=== PATIENT | female | born 1965 | race Two or more races ===

== ENCOUNTER 2020-10-28 23:39 | Emergency (ER) | payer OTHER ==
[~2020-10-28] VITALS: Ht 157.5 cm; Wt 72.6 kg
[2020-10-28 23:41] VITALS: BP 175/104
[2020-10-29] MEDS ORDERED: SODIUM CHLORIDE 0.9% 1,000 ML IVB ONE (00:15)
[2020-10-29] MEDS ORDERED: MORPHINE SULFATE 4 MG/ML SYR/VIAL IV ONE (00:15)
[2020-10-29] MEDS ORDERED: ONDANSETRON HCL 4 MG/2 ML VIAL IV ONE (00:15)
[2020-10-29 01:13] LABS: Basophils # (auto) 0 10 ^3/uL (0-0.2); Basophils % (auto) 0.2 % (0.0-2.0); Eosinophils # (auto) 0.1 10 ^3/uL (0-0.8); Eosinophils % (auto) 0.5 % (0.0-7.0); Hematocrit 40.4 % (36.0-46.0); Hemoglobin 13.2 g/dL (12.2-16.2); Lymphocytes # (auto) 2.2 10 ^3/uL (0.4-5.4); Lymphocytes % (auto) 11.8 % (10.0-50.0); Mean Corpuscular Hemoglobin 30.9 pg (28.0-32.0); Mean Corpuscular Hgb Conc. 32.8 g/dL (32.0-36.0); Mean Corpuscular Volume 94.3 fL (80.0-100.0); Monocytes # (auto) 1.5 10 ^3/uL (0-1.3); Monocytes % (auto) 8.1 % (0.0-12.0); Neutrophils # (auto) 14.7 10 ^3/uL (1.6-8.6); Neutrophils % (auto) 79.4 % (37.0-80.0); Nucleated Red Blood Cells % 0.1 %; Red Blood Cells 4.28 10^6/uL (4.0-5.20); Red Cell Distribution Width 14.2 % (11.8-14.3); White Blood Cell 18.5 10^3/uL (4.4-10.8)
[2020-10-29 01:25] LABS: Albumin 4.1 g/dL (3.4-5.0); BUN/Creatinine Ratio 24.4; Calcium 10.1 mg/dL (8.5-10.1); Potassium 4.2 mmol/L (3.5-5.1)
[2020-10-29 01:28] LABS: Bilirubin, Total 0.3 mg/dL (0.2-1.0); Lactic Acid w/Reflex 2.6 mmol/L (0.4-2.0); Total Protein 8.9 g/dL (6.4-8.2)
[2020-10-29 02:13] LABS: Urine Bacteria FEW /hpf (None Seen); Urine Blood Negative /uL (Negative); Urine Hyaline Cast FEW /lpf (0 - 2); Urine Mucus FEW (None Seen); Urine Specific Gravity 1.019 (1.001-1.035); Urine WBC 23 /hpf (0 - 5); Urine WBC Clumps PRESENT /hpf (None Seen)
== END 2020-10-29 02:59 | disposition left against medical advice (07) ==
LOC: ER 23:39
DX: R10.9 Unspecified abdominal pain (principal); R11.2 Nausea with vomiting, unspecified; R19.7 Diarrhea, unspecified; Z53.29 Procedure and treatment not carried out because of patient's decision for other reasons
CPT/HCPCS: 36415; 80053; 81001; 82150; 83605; 83690; 83735; 85025

== ENCOUNTER 2024-08-22 19:22 | Emergency (ER) | payer OTHER ==
[~2024-08-22] VITALS: Ht 157.5 cm; Wt 68.2 kg
[2024-08-22 19:33] VITALS: BP 167/90; PULSE 95; RESP 18; TEMP 98.2; O2SAT 96
[2024-08-22] MEDS ORDERED: ONDANSETRON HCL 4 MG/2 ML VIAL IV ONE (19:45)
[2024-08-22] MEDS ORDERED: PANTOPRAZOLE 40 MG/10 ML VIAL INJ IV ONE (19:45)
[2024-08-22] MEDS ORDERED: MORPHINE SULFATE 4 MG/ML SYR/VIAL IV ONE (19:45)
[2024-08-22] MEDS ORDERED: SODIUM CHLORIDE 0.9% 1,000 ML IVB ONE (19:45)
--- NOTE | 2024-08-22 20:06 | ED.PDOC ---
GI ASSESSMENT HPI Comments This is a 58-year-old female who comes in with chief complaint of abdominal pain and back pain. The patient states that the symptoms started at approximately 12:00 p.m. today. The patient states that the pain is a 10/10 and associated with some nausea and vomiting but no diarrhea or fever. The patient is able to ambulate but is having some difficulty. The patient is status post gastric bypass surgery. She states that the pain is not associated with any eating. Chief Complaint: Abdominal Pain Time Seen by MD: 19:31 Reviewed Notes: Nurses Notes, Medications, Allergies (NKDA) Allergies: Coded Allergies: NO KNOWN ALLERGIES (Unverified , 10/28/20) Information Source: Patient Mode of Arrival: Ambulatory Timing: Hours Duration: Since onset Prehospital treatment: None Quality: Burning, Cramping Vomitus: Watery Stool: Normal Severity: Moderate Recent: None Recent Hx of: None Pain Location: Diffuse Modifying Factors: Nothing Associated sign and symptoms: Nausea, Vomiting, Abdominal Pain Past Medical History PAST MEDICAL HISTORY: CKF, High Lipids, HTN Surgical History: BTL, Surgical History (Other): Gastric bypass surgery, tummy tuck 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: Denies all 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 Hx Family History Family History: Family hx of DM Social History Smoker: Non-Smoker Alcohol: Denies ETOH Use Drugs: Denies Drug Use Lives In: Home Constitutional: denies: chills, diaphoresis, fatigue, fever, malaise, sweats, weakness, others EENTM: denies: blurred vision, double vision, ear bleeding, ear discharge, ear drainage, ear pain, ear ringing, eye pain, eye redness, hearing loss, mouth pa in, mouth swelling, nasal discharge, nose bleeding, nose congestion, nose pain, photophobia, tearing, throat pain, throat swelling, voice changes, others Respiratory: denies: cough, hemoptysis, orthopnea, SOB at rest, shortness of breath, SOB with excertion, stridor, wheezing, others Cardiovascular: denies: chest pain, dizzy spells, diaphoresis, Dyspnea on exertion, edema, irregular heart beat, left arm pain, lightheadedness, palpitations, PND, syncope, others Gastrointestinal: reports: abdominal pain, nausea, vomiting; denies: abdomen distended, blood streaked bowels, constipated, diarrhea, dysphagia, difficulty swallowing, hematemesis, melena, poor appetite, poor fluid intake, rectal bleeding, rectal pain, others Genitourinary: denies: abnormal vagina bleeding, burning, dyspareunia, dysuria, flank pain, frequency, hematuria, incontinence, pain, , vagina discharge, urgency, others Neurological: denies: dizziness, fainting, headache, left sided numbness, left sided weakness, numbness, paresthesia, pre-existing deficit, right sided numbness, right sided weakness, seizure, speech problems, tingling, tremors, weakness, others Musculoskeletal: denies: back pain, gout, joint pain, joint swelling, muscle pain, muscle stiffness, neck pain, others Integumetry: denies: bruises, change in color, change in hair/nails, dryness, laceration, lesions, lumps, rash, wounds, others Allergic/Immunocompromised: denies: Difficulty Healing, Frequent Infections, Hives, Itching, others Hematologic/Lymphatic: denies: anemia, blood clots, easy bleeding, easy bruising, swollen glands, others Endocrine: denies: excessive hunger, excessive sweating, excessive thirst, excessive urination, flushing, intolerance to cold, intolerance to heat, unexplained weight gain, unexplained weight loss, others Psychiatric: denies: anxiety, bipolar disorder, depression, hopeless, panic disorder, schizophrenia, sleepless, suicidal, others Physical Exam General Appearance: Moderate Distress HEENT: Normal ENT Inspection, Pharynx Normal, TMs Normal Neck: Full Range of Motion, Non-Tender, Normal, Normal Inspection Respiratory: Chest Non-Tender, Lungs Clear, No Accessory Muscle Use, No Respiratory Distress, Normal Breath Sounds Cardiovascular: No Edema, No JVD, No Murmur, No Gallop, Normal Peripheral Pulses, Regular Rate/Rhythm Breast Exam: Deferred Gastrointestinal: Epigastric, No Organomegaly, No Pulsatile Mass, Normal Bowel Sounds, Soft, Tenderness Genitalia: Deferred Pelvic: Deferred Rectal: Deferred Extremities: No calf tenderness, Normal capillary refill, Normal inspection, Normal range of motion, Non-tender, No pedal edema Musculoskeletal : Apperance: Normal Neurologic: Alert, associate director of 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 Was a procedure done?: No GI differential Dx Differential Diagnosis: Cholangitis, Cholecystitis, Gastritis/PUD, Gastroenteritis, Inflammatory BD, Pancreatitis, UTI X-Ray, Labs, Meds, VS Vital Signs Date Time Temp Pulse Resp B/P (MAP) Pulse Ox O2 Delivery O2 Flow Rate FiO2 08/22/24 19:33 98.2 95 18 167/90 (115) 96 98.2 Lab Test 08/22/24 19:46 08/22/24 19:36 Range/Units White Blood Count 14.1 H 4.4-10.8 10^3/uL Red Blood Count 3.95 L 4.0-5.20 10^6/uL Hemoglobin 12.4 12.2-16.2 g/dL Hematocrit 37.5 36.0-46.0 % Mean Corpuscular Volume 94.9 80.0-100.0 fL Mean Corpuscular Hemoglobin 31.4 28.0-32.0 pg Mean Corpuscular Hemoglobin Concent 33.0 32.0-36.0 g/dL Red Cell Distribution Width 15.1 H 11.8-14.3 % Platelet Count 296 140-450 10^3/uL Mean Platelet Volume 8.2 6.9-10.8 fL Neutrophils (%) (Auto) 62.0 37.0-80.0 % Lymphocytes (%) (Auto) 28.9 10.0-50.0 % Monocytes (%) (Auto) 7.8 0.0-12.0 % Eosinophils (%) (Auto) 0.9 0.0-7.0 % Basophils (%) (Auto) 0.4 0.0-2.0 % Neutrophils # (Auto) 8.7 H 1.6-8.6 10 ^3/uL Lymphocytes # (Auto) 4.1 0.4-5.4 10 ^3/uL Monocytes # (Auto) 1.1 0-1.3 10 ^3/uL Eosinophils # (Auto) 0.1 0-0.8 10 ^3/uL Basophils # (Auto) 0.1 0-0.2 10 ^3/uL Nucleated Red Blood Cells 0.0 % Sodium Level 140 136-145 mmol/L Potassium Level 4.7 3.5-5.1 mmol/L Chloride Level 106 98-107 mmol/L Carbon Dioxide Level 25 20-31 mmol/L Anion Gap 9 5-15 Blood Urea Nitrogen 43 H 9-23 mg/dL Creatinine 2.14 H 0.550-1.02 mg/dL Glomerular Filtration Rate Calc 26 >90 mL/min BUN/Creatinine Ratio 20.1 H 10.0-20.0 Serum Glucose 113 H 74-106 mg/dL Calcium Level 9.4 8.7-10.4 mg/dL Total Bilirubin 0.3 0.2-1.0 mg/dL Aspartate Amino Transferase (AST) 30 13-40 U/L Alanine Aminotransferase (ALT) 26 7-40 U/L Alkaline Phosphatase 100 46-116 U/L Total Protein 7.5 5.7-8.2 g/dL Albumin 4.8 3.2-4.8 g/dL Lipase 60 H 12-53 U/L Urine Color Light-yellow Yellow Urine Clarity Clear Clear Urine pH 6.5 5.0-9.0 Urine Specific [place] 1.009 1.001-1.035 Urine Protein 2+ H Negative Urine Ketones Negative Negative Urine Blood 2+ H Negative /uL Urine Nitrite Negative Negative Urine Bilirubin Negative Negative Urine Urobilinogen Normal Negative mg/dL Urine Leukocyte Esterase 2+ Negative /uL Urine RBC 7 0 - 4 /hpf Urine Microscopic WBC 29 H 0-5 /HPF Urine Squamous Epithelial Cells Few <5 /hpf Urine Bacteria None seen None Seen /hpf Urine Glucose 3+ H Normal mg/dL IV Hep-Lock was established The patient is being given morphine 4 mg IV push The patient was given Zofran 4 mg IV push The patient was given Protonix 40 mg IV push The urine test is positive for what seems to be UTI The patient is then being given Rocephin 1 g IV piggyback The chemistry panel shows a BUN of 43 and a creatinine of 2.14 The lipase is elevated at 60 The CBC is elevated at 14.1 white count The patient is a [place] patient is so we did contact them for authorization for admission because we feel that this patient is unstable for transfer They did agree with us and the patient is being admitted to our facility. The authorization #[id number] We will continue to manage the patient's pain which was a 12/01. Images Reviewed?: Images reviewed and evaluated by me Time of 1ST Reevaluation: 20:09 Reevaluation 1ST: Unchanged Patient Education/Counseling: Diagnosis, Treatment, Prognosis Family Education/Counseling: No Family Present SEPSIS Sepsis Screen Date sepsis recognized/suspect: Aug 22, 2024 Time Sepsis recognized/suspect: 1924 Recent Procedure: No On Antibiotic Therapy: No Respiratory Rate >20: No Heart Rate >90: Yes Temp<36 C (96.8 F) or >38.3 C: No SBP <90 or MAP <65 mmHG: No New Acute Mental Status Change: No Is the patient on CPAP, BIPAP,: No Physician Orders Heplock Iv (08/22/24 19:35) Nylon Winder (08/22/24 19:35) Blood Pressure (08/22/24 19:35) Pulse Oximetry (08/22/24 19:35) Abdomen Complete Sonogram (08/22/24 19:35) Vital Signs Date Time Temp Pulse Resp B/P (MAP) Pulse Ox O2 Delivery O2 Flow Rate FiO2 08/22/24 19:33 98.2 95 18 167/90 (115) 96 98.2 Laboratory Tests Test 08/22/24 19:46 White Blood Count 14.1 10^3/uL (4.4-10.8) H Departure 1 Departure Time of Disposition: 21:34 Impression: Primary Impression: Intractable abdominal pain Additional Impressions: Thickening of wall of gallbladder Acute pancreatitis Qualified Codes: K85.90 - Acute pancreatitis without necrosis or infection, unspecified Leukocytosis Qualified Codes: D72.829 - Elevated white blood cell count, unspecified Disposition: 09 ADMITTED INPATIENT Admit to: Med Surg Condition: Fair Critical Care Note Critical Care Time?: No Stability Stability form required: Yes Unstable for transfer: ED Physician Assesment (Clinical assesment) Heart Score Heart Score: Heart Score Response (Comments) Value History N/A 0 EKG N/A 0 Age N/A 0 Risk Factors N/A 0 Troponin N/A 0 Total 0 YOBANY GUERRA MD Aug 22, 2024 20:06
[2024-08-22 20:08] LABS: Hematocrit 37.5 % (36.0-46.0); Hemoglobin 12.4 g/dL (12.2-16.2); Mean Corpuscular Hemoglobin 31.4 pg (28.0-32.0); Mean Corpuscular Volume 94.9 fL (80.0-100.0); Nucleated Red Blood Cells % 0.0 %
[2024-08-22 20:13] LABS: Urine Protein, UAD 2+ (Negative)
[2024-08-22 20:28] LABS: Alanine Aminotransferase 26 U/L (7-40); Albumin 4.8 g/dL (3.2-4.8); Alkaline Phosphatase 100 U/L (46-116); Anion Gap 9 (5-15); BUN/Creatinine Ratio 20.1 (10.0-20.0); Bilirubin, Total 0.3 mg/dL (0.2-1.0); Blood Urea Nitrogen 43 mg/dL (9-23); Calcium 9.4 mg/dL (8.7-10.4); Carbon Dioxide 25 mmol/L (20-31); Chloride 106 mmol/L (98-107); Glucose 113 mg/dL (74-106); Lipase 60 U/L (12-53); Potassium 4.7 mmol/L (3.5-5.1); Sodium 140 mmol/L (136-145); Total Protein 7.5 g/dL (5.7-8.2)
[2024-08-22] MEDS ORDERED: cefTRIAXone 1GM/50ML D5W 50 ML IV ONE (20:45)
--- NOTE | 2024-08-22 21:16 | DVH ---
ABDOMINAL ULTRASOUND CLINICAL HISTORY: Abdominal pain TECHNIQUE: Multiple grayscale and color Doppler ultrasound images were obtained of the abdomen. WID: COMPARISON: None FINDINGS: Liver and Biliary System: Increased echogenicity normal size measuring 13 cm. No focal hepatic obs ervations. No intrahepatic bile duct dilatation. The common duct measures 6 cm at the marty hepatis . The gallbladder is mildly dilated without wall thickening or cholelithiasis. Pancreas: Visualized portions are unremarkable. Spleen: is within normal limits. Kidneys: The right kidney is 9.2 cm and the left kidney is 8.7 cm. No hydronephrosis. There is a l eft lower pole renal cyst measuring 1.4 cm. There appears to be a nonobstructing left lower pole adriane al calculus measuring 7 mm. Increased cortical echogenicity bilaterally.. Aorta: Visualized portions are normal in caliber. IVC: Visualized portions are normal in caliber. Peritoneal Space: No ascites. IMPRESSION: 1. Mild Hepatic steatosis. 2. Mildly dilated gallbladder without cholelithiasis or evidence of acute cholecystitis. 3. Lower limits of normal-sized kidneys. 4. Small left lower pole renal cyst and nonobstructing left lower pole renal calculus. 5. Increased bilateral renal cortical echogenicity which could be due to medical renal disease.
== END 2024-08-22 23:08 | disposition left against medical advice (07) ==
LOC: ER 19:22
DX: K82.8 Other specified diseases of gallbladder (principal); K85.90 Acute pancreatitis without necrosis or infection, unspecified; R10.30 Lower abdominal pain, unspecified; D72.829 Elevated white blood cell count, unspecified; I10 Essential (primary) hypertension; Z98.51 Tubal ligation status
CPT/HCPCS: 36415; 76700; 80053; 81001; 83690; 85025

== ENCOUNTER 2024-10-12 18:30 | Emergency (ER) | payer OTHER ==
[~2024-10-12] VITALS: Ht 152.4 cm; Wt 68.3 kg
[2024-10-12 18:32] VITALS: BP 170/100; RESP 16; TEMP 98.9; O2SAT 97
[2024-10-12 19:34] VITALS: PULSE 118
--- NOTE | 2024-10-12 19:34 | ED.PDOC ---
HPI Comments HPI: 58-year-old female came to ER for chest pains. Patient states she started experiencing chest pains this morning, across her chest, involving both breasts and her midsternal chest area. Patient also complaining of generalized body aches. Noted that her chest is sore to touch. Patient took Range at home point of pain but offered slight relief only Initial Vitals BP: 170/100 HR: 115 RR: 16 O2: 97% Temp: 98.9 F Past Medical History: Hypertension, chronic kidney failure 3 Past Surgical History: , BTL Social History: Denies ETOH, smoking, and drug use. Medications: Allergies: None DAVID: chest pain/body aches. 58 yo F Presents with one day history of chest pain across her entire chest left and right and midsternal area. She took some Range. Onset of symptoms was this morning. Range offered very little relief. Patient also complains of some generalized body aches. HPI: Poor Historian. REVIEW OF SYSTEMS: CONSTITUTIONAL: Denies acute: fever, diaphoresis, chills, generalized weakness. HEAD: Denies acute: headache, photophobia Eyes: Denies acute: Double vision, vision loss, eye pain, eye discharge. EARS: Denies acute: tinnitus, hearing loss, ear discharge, ear pain, THROAT: Denies acute: sore throat, swelling, difficulty swallowing , pain with swallowing, change in voice. NECK: Denies acute: neck pain, neck swelling, stiff neck. HEART: Denies acute : palpitations, LUNGS: Denies acute: , wheezing, cough, hemoptysis ABDOMEN: Denies acute: abdominal pain, Nausea, Vomiting, diarrhea, melena , hematemesis, hematochezia SKIN: Denies acute: rash, redness, lesions, itchiness. EXTREMITIES: Denies acute: calf pain, numbness, tingling, weakness, denies pain in extremity. Denies acute: Low back pain. Neuro: Denies acute: focal neurological deficit, motor or sensory focal neurological deficit, tremors, seizure like activity, confusion, dizziness, change in mental status, loss of bowel or bladder function, cauda equina like symptoms. : Denies acute: dysuria, hematuria, flank pain, increase in urinary frequency. PSYCH: Denies acute: hallucination, suicidal ideation, homicidal ideation. FEMALE: Denies acute: abnormal vaginal bleeding, foul odor, unusual discharge. PHYSICAL EXAM: General: ---[id number]-----acute distress, awake and alert. Head: normocephalic, atraumatic. Neck: supple, trachea is midline, no swelling. Throat: Normal phonation. Eyes:, no erythema, no purulent discharge, no proptosis, no icterus. Heart: regular tachycardic, no significant murmur appreciated. Lungs: no apparent respiratory distress, Able to speak in full sentences. No wheezing, no rhonchi, no crackles. No stridors Clear to auscultation bilaterally. Abdomen: non tender to palpation, non distended, soft, no guarding, no rebound, + bowel sounds. Neuro: Awake, Alert, oriented to name, self, situation, follows commands GCS=15. Speech is normal. Skin: no petechia, no purpura, no cyanosis, non-pale, not jaundice. Lower extremities: --no - Pitting edema no deformity, no focal swelling, no calf TTP. Makes eye contact. moves all four extremities. Face: no apparent facial droop. Ambulating in the ED independently. ED COURSE: DISCLAIMER: This medical document was created using an electronic medical record system with voice recognition software and computerized dictation system. Although this document has been carefully reviewed, there might still be some phonetic and typographical errors. Occasional wrong-word or "sound-alike" substitutions may have occurred due to the inherent limitations of voice recognition software. These areas are purely typographical due to imperfections of the software programs and do not reflect any compromise in the patient's medical care. Please read the chart carefully and recognize, using context, where these substitutions have occurred. 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 Was a procedure done?: No X-Ray, Labs, Meds, VS Vital Signs Date Time Temp Pulse Resp B/P (MAP) Pulse Ox O2 Delivery O2 Flow Rate FiO2 10/12/24 19:34 118 10/12/24 18:40 114 10/12/24 18:32 98.9 115 16 170/100 97 98.9 Time of 1ST Reevaluation: 19:32 Reevaluation 1ST: Unchanged Patient Education/Counseling: Diagnosis, Treatment Family Education/Counseling: No Family Present SEPSIS Sepsis Screen Date sepsis recognized/suspect: Oct 12, 2024 Time Sepsis recognized/suspect: 1831 Recent Procedure: No On Antibiotic Therapy: No Respiratory Rate >20: No Heart Rate >90: Yes Temp<36 C (96.8 F) or >38.3 C: No SBP <90 or MAP <65 mmHG: No New Acute Mental Status Change: No Is the patient on CPAP, BIPAP,: No Physician Orders Electrocardigram (10/12/24 18:33) Electrocardigram (10/12/24 19:33) Electrocardigram (10/12/24 21:33) Paving Stone Installer (10/12/24 ) Chest Portable (10/12/24 18:49) Vital Signs Date Time Temp Pulse Resp B/P (MAP) Pulse Ox O2 Delivery O2 Flow Rate FiO2 10/12/24 19:34 118 10/12/24 18:40 114 10/12/24 18:32 98.9 115 16 170/100 97 98.9 Departure 1 Departure Time of Disposition: 21:10 Impression: Primary Impression: Chest pain Additional Impression: Eloped from emergency department Disposition: 07 LEFT AWOL/ELOPED Condition: Other Additional Instructions: Patient eloped Critical Care Note Critical Care Time?: No Heart Score Heart Score: Heart Score Response (Comments) Value History Slightly Suspicious 0 EKG Repolarization Disturb 1 Age 45-64 1 Risk Factors 1 or 2 risk factors 1 Troponin Normal limit 0 Total 3 I personally scribed for JAC HORN DO ([email or web address]) on 10/12/24 at 19:33. Electronically submitted by Eric Marin ([email or web address]). JAC HORN DO Oct 12, 2024 19:33
--- NOTE | 2024-10-13 06:42 | ECG ---
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
== END 2024-10-12 21:10 | disposition left against medical advice (07) ==
LOC: ER 18:30
DX: R07.89 Other chest pain (principal); M79.18 Myalgia, other site; I12.9 Hypertensive chronic kidney disease with stage 1 through stage 4 chronic kidney disease, or unspecified chronic kidney disease; N18.9 Chronic kidney disease, unspecified; E78.5 Hyperlipidemia, unspecified; Z88.5 Allergy status to narcotic agent; Z98.51 Tubal ligation status
CPT/HCPCS: 93005